=== PATIENT | male | born 1950 | race African-American/Black ===

== ENCOUNTER 2021-12-12 16:21 | Emergency (ER) | payer MEDICARE, OTHER | END 2021-12-12 18:19 | disposition home or self-care (01) | LOC: CSHERS 16:21 | DX: S02.2XXA Fracture of nasal bones, initial encounter for closed fracture (principal); S09.90XA Unspecified injury of head, initial encounter; W19.XXXA Unspecified fall, initial encounter | CPT/HCPCS: 70450; 70486; 72125; 93005 ==

== ENCOUNTER 2025-06-10 13:52 | Emergency (ER) | payer MEDICARE, OTHER ==
[2025-06-10] MEDS ORDERED: HYDROcodone/Acetaminophen 5/325 mg Tablet ONE (14:43)
== END 2025-06-10 18:18 | disposition home or self-care (01) ==
LOC: CSHERS 13:52
DX: M54.2 Cervicalgia (principal); M25.551 Pain in right hip; R51.9 Headache, unspecified; I10 Essential (primary) hypertension; W06.XXXA Fall from bed, initial encounter; Y92.129 Unspecified place in nursing home as the place of occurrence of the external cause
CPT/HCPCS: 70450; 71045; 72125; 72170